=== PATIENT | male | born 1980 | race Caucasian/White ===

== ENCOUNTER → 2017-10-13 | Outpatient (CLI) | payer BC ==
[~2017-10-13] MED LIST: NORCO 5-325 TA1 EACH PO
== END ==
LOC: M.ULTRA 07:47
DX: K76.0 Fatty (change of) liver, not elsewhere classified (principal); R63.0 Anorexia

== ENCOUNTER → 2017-10-20 | Outpatient (CLI) | payer BC | LOC: M.NUC 10-12 13:54 | DX: K31.84 Gastroparesis (principal); R11.0 Nausea; R68.81 Early satiety; R63.4 Abnormal weight loss ==